=== PATIENT | female | born 2005 | race African-American/Black ===

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

== ENCOUNTER 2024-05-05 23:06 | Emergency (ER) | payer OTHER ==
[2024-05-05 23:14] VITALS: BP 115/73; PULSE 87; RESP 20; TEMP 98.7; BMI 31.3
[2024-05-05] MEDS ORDERED: IBUPROFEN 400 MG TABLET (FP) PO ONE (23:45)
[2024-05-05] MEDS: IBUPROFEN 400 MG TABLET (FP) PO ONE (23:49)
[2024-05-06] MEDS ORDERED: METHOCARBAMOL 500 MG TABLET ONE (01:12)
[2024-05-06] MEDS: METHOCARBAMOL 500 MG TABLET PO ONE (01:14)
== END 2024-05-06 01:53 | disposition home or self-care (01) ==
LOC: JER 23:06
DX: R68.84 Jaw pain (principal)
CPT/HCPCS: 70150-TC-FY; 99283-25

== ENCOUNTER 2024-08-22 16:43 | Emergency (ER) | payer OTHER ==
[2024-08-22 17:11] VITALS: BP 121/77; PULSE 89; RESP 17; TEMP 98.5; BMI 30.5
[2024-08-22] MEDS ORDERED: ALBUTEROL SO4 2.5/IPRATROPIUM 0.5 INH SOL 3 ML VIAL.NEB. NEB ONE (18:32)
[2024-08-22] MEDS: ALBUTEROL SO4 2.5/IPRATROPIUM 0.5 INH SOL 3 ML VIAL.NEB. NEB ONE (18:43)
[2024-08-22 19:32] LABS: BASO % 0.7 % (0-2.0); EOS % 0.8 % (0-4.5); HEMATOCRIT 40.5 % (32.4-45.2); HEMOGLOBIN 12.7 GM/dL (10.7-15.3); LYMPH % 56.3 % (8-40); MCH 24.5 pg (25.7-33.7); MCHC 31.4 g/dl (32.0-36.0); MEAN CELL VOLUME 77.9 fl (80-96); MEAN PLT VOLUME 7.3 fl (7.5-11.1); MONO % 5.8 % (3.8-10.2); NEUT % 36.4 % (42.8-82.8); PLATELET COUNT 296 10^3/uL (134-434); RDW 15.6 % (11.6-15.6); WHITE BLOOD COUNT 4.2 K/mm3 (4.0-10.0)
[2024-08-22 19:49] LABS: POTASSIUM 3.5 mmol/L (3.5-5.1)
[2024-08-22 19:51] LABS: CALCIUM 9.1 mg/dL (8.5-10.1)
[2024-08-22 19:52] LABS: ALBUMIN 4.2 g/dl (3.4-5.0); BLOOD UREA NITROGEN 7.9 mg/dL (7-18)
[2024-08-22 19:55] LABS: CREATININE 0.8 mg/dL (0.55-1.3)
[2024-08-22 19:56] LABS: BILIRUBIN,TOTAL 0.4 mg/dL (0.2-1); TOT PROT 8.6 g/dl (6.4-8.2)
[2024-08-22 20:46] LABS: HIV INTERPRETATION NEGATIVE (NEGATIVE)
== END 2024-08-22 20:29 | disposition home or self-care (01) ==
LOC: JERFT 16:43
PROC: 3E0F7GC Introduction of Other Therapeutic Substance into Respiratory Tract, Via Natural or Artificial Opening (ICD-10-PCS; principal; 2024-08-22)
DX: R07.89 Other chest pain (principal); R06.02 Shortness of breath
CPT/HCPCS: 36415; 71046-TC-FY; 80053; 84484; 85025; 86803; 87389; 93005; 93010; 99285-25